=== PATIENT | female | born 1995 | race American Indian/Alaskan Native ===

== ENCOUNTER 2017-04-10 03:42 | Emergency (ER) | payer MEDICAID, OTHER ==
[2017-04-10] MEDS ORDERED: Sodium Chloride 0.9% 1,000 ML IV STA (04:07)
--- NOTE | 2017-04-10 04:08 | ED PDOC ---
Arrival/HPI - General Chief Complaint: Abdominal Pain Time Seen by Provider: 04/10/17 03:44 Historian: Patient - History of Present Illness Narrative History of Present Illness (Text): 04/10/17 04:05 Laquita Owen is a 21 year old female who presents to the Emergency department complaining of generalized abdominal pain for the past 4 days. Patient reports associated nausea, vomiting, diarrhea, and body aches. Patient states she took "opiates" yesterday for pain but denies any significant relief. Patient regularly uses marijuana. Patient denies any fever, chest pain, shortness of breath, urinary symptoms, back pain, neck pain, headache, dizziness , or any other complaints. Time/Duration: < week (4 days) Symptom Course: Unchanged Activities at Onset: Light Context: Home Past Medical History - Provider Review Nursing Documentation Reviewed: Yes - Infectious Disease Hx of Infectious Diseases: None - Cardiac Hx Cardiac Disorders: No - Pulmonary Hx Respiratory Disorders: No - Neurological Hx Neurological Disorder: No - HEENT Hx HEENT Disorder: No - Renal Hx Renal Disorder: No - Endocrine/Metabolic Hx Endocrine Disorders: No - Hematological/Oncological Hx Blood Disorders: No - Integumentary Hx Dermatological Disorder: No - Musculoskeletal/Rheumatological Hx Musculoskeletal Disorders: No - Gastrointestinal Hx Gastrointestinal Disorders: No - Genitourinary/Gynecological Hx Genitourinary Disorders: No - Psychiatric Hx Psychophysiologic Disorder: Yes Hx Substance Use: Yes Other/Comment: opiate abuse Family/Social History - Physician Review Nursing Documentation Reviewed: Yes Family/Social History: Unknown Family HX Smoking Status: Light Smoker < 10 Cigarettes Daily Hx Alcohol Use: Yes Frequency of alcohol use: Socially Hx Substance Use: Yes Substance used: opiates Allergies/Home Meds Allergies/Adverse Reactions: Allergies No Known Allergies Allergy (Verified 04/10/17 03:56) Home Medications: Home Meds Medication Instructions Recorded Confirmed No Known Home Med 04/10/17 04/10/17 Review of Systems - Physician Review All systems were reviewed & negative as marked: Yes - Review of Systems Constitutional: Normal Eyes: Normal ENT: Normal Respiratory: Normal. absent: SOB, Cough Cardiovascular: Normal. absent: Chest Pain Gastrointestinal: Abdominal Pain, Diarrhea, Nausea, Vomiting Genitourinary Female: Normal. absent: Dysuria, Frequency, Hematuria, Urine Output Changes Musculoskeletal: Myalgias. absent: Back Pain, Neck Pain Skin: Normal. absent: Rash Neurological: Normal. absent: Headache, Dizziness Endocrine: Normal Hemo/Lymphatic: Normal Psychiatric: Normal Physical Exam Vital Signs Reviewed: Yes Vital Signs Temp Pulse Resp BP Pulse Ox 04/10/17 05:42 74 17 125/73 100 04/10/17 03:42 98.2 F 57 L 18 128/75 99 Temperature: Afebrile Blood Pressure: Normal Pulse: Regular Respiratory Rate: Normal Appearance: Positive for: Well-Appearing, Non-Toxic, Comfortable Pain Distress: None Mental Status: Positive for: Alert and Oriented X 3 - Systems Exam Head: Present: Atraumatic, Normocephalic Pupils: Present: PERRL Extroacular Muscles: Present: EOMI Conjunctiva: Present: Normal Mouth: Present: Moist Mucous Membranes Neck: Present: Normal Range of Motion Respiratory/Chest: Present: Clear to Auscultation, Good Air Exchange. No: Respiratory Distress, Accessory Muscle Use Cardiovascular: Present: Regular Rate and Rhythm, Normal S1, S2. No: Murmurs Abdomen: Present: Normal Bowel Sounds. No: Tenderness, Distention, Peritoneal Signs Back: Present: Normal Inspection Upper Extremity: Present: Normal Inspection. No: Cyanosis, Edema Lower Extremity: Present: Normal Inspection. No: Edema Neurological: Present: GCS=15, CN II-XII Intact, Speech Normal Skin: Present: Warm, Dry, Normal Color. No: Rashes Psychiatric: Present: Alert, Oriented x 3, Normal Insight, Normal Concentration Medical Decision Making ED Course and Treatment: 04/10/17 04:05 Impression: 21 year old female complaining of generalized abdominal pain, nausea, vomiting, diarrhea, and body aches. Plan: -- Labs, alcohol level, lipase -- Urinalysis, urine drug screen -- IV fluids -- Zofran -- Pepcid -- Toradol -- Reassess and disposition Progress Notes: - Lab Interpretations Lab Results: 04/10/17 04:20 04/10/17 04:20 Lab Results 04/10/17 04:20: Urine Opiates Screen Positive H, Urine Methadone Screen Negative , Ur Barbiturates Screen Negative, Ur Phencyclidine Scrn Negative, Ur Amphetamines Screen Negative, U Benzodiazepines Scrn Negative, U Oth Cocaine Metabols Negative, U Cannabinoids Screen Positive H 04/10/17 04:20: Alcohol, Quantitative < 10 04/10/17 04:20: WBC 10.3, RBC 4.10, Hgb 11.7 L, Hct 35.6 L, MCV 86.8, MCH 28.5, MCHC 32.9, RDW 15.1 H, Plt Count 222, MPV 9.9 04/10/17 04:20: Sodium 140, Potassium 3.7, Chloride 104, Carbon Dioxide 26, Anion Gap 13, BUN 14, Creatinine 0.7, Est GFR ( Amer) > 60, Est GFR (Non- Af Amer) > 60, Random Glucose 98, Calcium 9.2, Total Bilirubin 0.5, AST 19, ALT 21, Alkaline Phosphatase 71, Total Protein 6.8, Albumin 4.1, Globulin 2.7, Albumin/Globulin Ratio 1.5, Lipase 107 04/10/17 04:20: Urine Color Yellow, Urine Appearance Clear, Urine pH 6.0, Ur Specific [place] >= 1.030, Urine Protein 30 H, Urine Glucose (UA) Negative, Urine Ketones 15 H, Urine Blood Negative, Urine Nitrate Negative, Urine Bilirubin Small H, Urine Urobilinogen 0.2, Ur Leukocyte Esterase Negative, Urine RBC 0 - 2, Urine WBC 5 - 10, Ur Epithelial Cells Many, Urine Bacteria Mod , Urine HCG, Qual Negative - RAD Interpretation Radiology Orders: 04/10/17 07:05 ABD & PELVIS IV CONTRAST ONLY [CT] Stat - Medication Orders Current Medication Orders: Morphine Sulfate (Morphine) 4 mg IVP STAT STA Stop: 04/10/17 07:04 Discontinued Medications Famotidine (Pepcid) 20 mg IVP STAT STA Stop: 04/10/17 04:08 Last Admin: 04/10/17 04:27 Dose: 20 mg IVP Administration Document 04/10/17 04:27 IT (Rec: 04/10/17 04:27 IT [id number]) Charges for Administration # of IVP Administrations 1 Sodium Chloride (Sodium Chloride 0.9%) 1,000 mls @ 999 mls/hr IV .Q1H1M STA Stop: 04/10/17 05:07 Last Admin: 04/10/17 04:27 Dose: 999 mls/hr eMAR Start Stop Document 04/10/17 04:27 IT (Rec: 04/10/17 04:27 IT [id number]) Intravenous Solution Start Date 04/10/17 Start Time 04:27 End Date 04/10/17 End time 05:27 Total Infusion Time 60 Ketorolac Tromethamine (Toradol) 30 mg IVP ONCE ONE Stop: 04/10/17 04:08 Last Admin: 04/10/17 04:27 Dose: 30 mg MAR Pain Assessment Document 04/10/17 04:27 IT (Rec: 04/10/17 04:27 IT [id number]) Pain Reassessment Is this a pain reassessment? No Sleep Is patient sleeping during reassessment? No Presence of Pain Presence of Pain Yes IVP Administration Document 04/10/17 04:27 IT (Rec: 04/10/17 04:27 IT [id number]) Charges for Administration # of IVP Administrations 1 Ondansetron HCl (Zofran Inj) 4 mg IVP ONCE ONE Stop: 04/10/17 04:08 Last Admin: 04/10/17 04:27 Dose: 4 mg IVP Administration Document 04/10/17 04:27 IT (Rec: 04/10/17 04:27 IT [id number]) Charges for Administration # of IVP Administrations 1 - Transfer of Care Patient signed out to Dr:: Dakotah Pending Radiology Studies:: CT Abd/pelvis/reassess/final disposition - Scribe Statement The provider has reviewed the documentation as recorded by the Donald Colby Provider Scribe Attestation: All medical record entries made by the Scribe were at my direction and personally dictated by me. I have reviewed the chart and agree that the record accurately reflects my personal performance of the history, physical exam, medical decision making, and the department course for this patient. I have also personally directed, reviewed, and agree with the discharge instructions and disposition. Disposition/Present on Arrival - Present on Arrival Any Indicators Present on Arrival: No History of DVT/PE: No History of Uncontrolled Diabetes: No Urinary Catheter: No History of Decub. Ulcer: No History Surgical Site Infection Following: None - Disposition Have Diagnosis and Disposition been Completed?: No Diagnosis: Abdominal pain Disposition: HOME/ ROUTINE Disposition Time: 07:06 Condition: STABLE Forms: [employer] (Japanese)
[2017-04-10 04:47] LABS: URINE BILIRUBIN SMALL (NEGATIVE); URINE BLOOD NEGATIVE (NEGATIVE); URINE GLUCOSE (UA) NEGATIVE (NEGATIVE); URINE LEUKOCYTE ESTERASE NEGATIVE Leu/uL (NEGATIVE); URINE NITRATE NEGATIVE (NEGATIVE); URINE PROTEIN 30 mg/dL (<30 mg/dL); URINE UROBILINOGEN 0.2 E.U./dL (<1 E.U./dL)
[2017-04-10 04:56] LABS: HEMOGLOBIN 11.7 g/dL (12.0-16.0); MEAN CELL VOLUME 86.8 fl (80.0-105.0); MEAN CORPUSCULAR HEMOGLOBIN 28.5 pg (25.0-35.0); MEAN CORPUSCULAR HGB CONC 32.9 g/dl (31.0-37.0); MEAN PLATELET VOLUME 9.9 fl (7.0-11.0); RBC 4.1 10^6/uL (3.5-6.1); RED CELL DISTRIBUTION WIDTH 15.1 % (11.5-14.5); WHITE BLOOD COUNT 10.3 10^3/ul (4.5-11.0)
[2017-04-10 04:58] LABS: ALB/GLOB RATIO 1.5 (1.1-1.8); ALBUMIN 4.1 g/dL (3.0-4.8); ALT/SGPT 21 U/L (7-56); AST/SGOT 19 U/L (14-36); BLOOD UREA NITROGEN 14 mg/dL (7-21); CALCIUM 9.2 mg/dL (8.4-10.5); GFR AFRICAN-AMERICAN > 60; GFR NON-AFRICAN AMERICAN > 60; LIPASE 107 U/L (23-300)
[2017-04-10 05:01] LABS: URINE APPEARANCE CLEAR (CLEAR); URINE COLOR YELLOW (YELLOW)
[2017-04-10 05:08] LABS: HCG,QUALITATIVE URINE NEGATIVE (NEGATIVE); URINE RBC 0 - 2 /hpf (0-2)
[2017-04-10 05:09] LABS: URINE BACTERIA MOD (NEG); URINE EPITHELIAL CELLS MANY /hpf (0-5)
[2017-04-10 05:22] LABS: BARBITURATES, UR NEGATIVE (NEGATIVE); BENZODIAZEPINES, UR NEGATIVE (NEGATIVE); PHENCYCLIDINE, UR NEGATIVE (NEGATIVE)
[2017-04-10 05:24] LABS: OPIATES, UR POSITIVE (NEGATIVE)
[2017-04-10] MEDS ORDERED: Morphine 2 mg/ml ISec IVP STA (07:03)
[2017-04-10] MEDS ORDERED: Iohexol 350 MG/100 ML VIAL ONE (07:40)
--- NOTE | 2017-04-10 08:38 | CT ---
PROCEDURE: CT Abdomen and Pelvis with contrast HISTORY: abdominal pain COMPARISON: None. TECHNIQUE: Contrast dose: 100 cc of Omni 350 Radiation dose: Total exam DLP = 299 mGy-cm. This CT exam was performed using one or more of the following dose reduction techniques: Automated exposure control, adjustment of the mA and/or kV according to patient size, and/or use of iterative reconstruction technique. FINDINGS: LOWER THORAX: Unremarkable. LIVER: Periportal edema is seen around the central and distal portal veins. This can be seen in numerous conditions. The most common etiology is hepatitis. Clinical correlation is suggested. GALLBLADDER AND BILE DUCTS: Unremarkable. PANCREAS: Unremarkable. No gross lesion or ductal dilatation. SPLEEN: Unremarkable. ADRENALS: Unremarkable. No mass. KIDNEYS AND URETERS: Unremarkable. No hydronephrosis. No solid mass. VASCULATURE: Unremarkable. No aortic aneurysm. BOWEL: Unremarkable. No obstruction. No gross mural thickening. APPENDIX: Normal appendix. PERITONEUM: Unremarkable. No free fluid. No free air. LYMPH NODES: Unremarkable. No enlarged lymph nodes. BLADDER: Unremarkable. REPRODUCTIVE: Multiple ovarian cysts are seen. There is a moderate amount of fluid in the cul-de-sac consistent with recent cyst rupture BONES: No acute fracture. OTHER FINDINGS: The findings were discussed with Dr. Claire at 8:30 a.m. IMPRESSION: Periportal edema in the liver. There are numerous possible etiologies. Most common etiology is viral hepatitis. Multiple ovarian cysts with a moderate amount of fluid in the cul-de-sac consistent with recent cyst rupture
--- NOTE | 2017-04-10 10:07 | ED PDOC ---
Physical Exam Vital Signs Temp Pulse Resp BP Pulse Ox 04/10/17 11:00 98.7 F 61 18 137/79 98 04/10/17 09:00 98.8 F 76 16 130/76 100 04/10/17 07:00 98.8 F 63 16 113/70 100 04/10/17 05:42 74 17 125/73 100 04/10/17 03:42 98.2 F 57 L 18 128/75 99 Medical Decision Making ED Course and Treatment: 04/10/17 9:55 Discussed case with GI fellow, who discussed case with Dr. Matthews. Dr. Matthews is requesting abdominal Ultrasound with doppler. 04/10/17 12:46 Discussed case with GI fellow regarding results of Ultrasound. Patient clear for discharge. Patient seems in no acute distress and is adviced for outpatient follow-up. - Lab Interpretations Lab Results: 04/10/17 04:20 04/10/17 04:20 Lab Results 04/10/17 04:20: Urine Opiates Screen Positive H, Urine Methadone Screen Negative , Ur Barbiturates Screen Negative, Ur Phencyclidine Scrn Negative, Ur Amphetamines Screen Negative, U Benzodiazepines Scrn Negative, U Oth Cocaine Metabols Negative, U Cannabinoids Screen Positive H 04/10/17 04:20: Alcohol, Quantitative < 10 04/10/17 04:20: WBC 10.3, RBC 4.10, Hgb 11.7 L, Hct 35.6 L, MCV 86.8, MCH 28.5, MCHC 32.9, RDW 15.1 H, Plt Count 222, MPV 9.9 04/10/17 04:20: Sodium 140, Potassium 3.7, Chloride 104, Carbon Dioxide 26, Anion Gap 13, BUN 14, Creatinine 0.7, Est GFR ( Amer) > 60, Est GFR (Non- Af Amer) > 60, Random Glucose 98, Calcium 9.2, Total Bilirubin 0.5, AST 19, ALT 21, Alkaline Phosphatase 71, Total Protein 6.8, Albumin 4.1, Globulin 2.7, Albumin/Globulin Ratio 1.5, Lipase 107 04/10/17 04:20: Urine Color Yellow, Urine Appearance Clear, Urine pH 6.0, Ur Specific [place] >= 1.030, Urine Protein 30 H, Urine Glucose (UA) Negative, Urine Ketones 15 H, Urine Blood Negative, Urine Nitrate Negative, Urine Bilirubin Small H, Urine Urobilinogen 0.2, Ur Leukocyte Esterase Negative, Urine RBC 0 - 2, Urine WBC 5 - 10, Ur Epithelial Cells Many, Urine Bacteria Mod , Urine HCG, Qual Negative - RAD Interpretation Radiology Orders: 04/10/17 07:05 ABD & PELVIS IV CONTRAST ONLY [CT] Stat 04/10/17 08:29 TRANSVAGINAL [US] Stat 04/10/17 09:49 ABDOMEN COMPLETE DUPLEX [US] Stat - Medication Orders Current Medication Orders: Discontinued Medications Famotidine (Pepcid) 20 mg IVP STAT STA Stop: 04/10/17 04:08 Last Admin: 04/10/17 04:27 Dose: 20 mg IVP Administration Document 04/10/17 04:27 IT (Rec: 04/10/17 04:27 IT [id number]) Charges for Administration # of IVP Administrations 1 Sodium Chloride (Sodium Chloride 0.9%) 1,000 mls @ 999 mls/hr IV .Q1H1M STA Stop: 04/10/17 05:07 Last Admin: 04/10/17 04:27 Dose: 999 mls/hr eMAR Start Stop Document 04/10/17 04:27 IT (Rec: 04/10/17 04:27 IT [id number]) Intravenous Solution Start Date 04/10/17 Start Time 04:27 End Date 04/10/17 End time 05:27 Total Infusion Time 60 Ketorolac Tromethamine (Toradol) 30 mg IVP ONCE ONE Stop: 04/10/17 04:08 Last Admin: 04/10/17 04:27 Dose: 30 mg MAR Pain Assessment Document 04/10/17 04:27 IT (Rec: 04/10/17 04:27 IT [id number]) Pain Reassessment Is this a pain reassessment? No Sleep Is patient sleeping during reassessment? No Presence of Pain Presence of Pain Yes IVP Administration Document 04/10/17 04:27 IT (Rec: 04/10/17 04:27 IT [id number]) Charges for Administration # of IVP Administrations 1 Morphine Sulfate (Morphine) 4 mg IVP STAT STA Stop: 04/10/17 07:04 Last Admin: 04/10/17 07:10 Dose: Not Given Non-Admin Reason: Nausea Ondansetron HCl (Zofran Inj) 4 mg IVP ONCE ONE Stop: 04/10/17 04:08 Last Admin: 04/10/17 04:27 Dose: 4 mg IVP Administration Document 04/10/17 04:27 IT (Rec: 04/10/17 04:27 IT [id number]) Charges for Administration # of IVP Administrations 1 Ondansetron HCl (Zofran Inj) 4 mg IVP STAT STA Stop: 04/10/17 07:33 Last Admin: 04/10/17 08:17 Dose: 4 mg IVP Administration Document 04/10/17 08:17 AB (Rec: 04/10/17 08:17 AB [id number]) Charges for Administration # of IVP Administrations 1 Disposition/Present on Arrival - Present on Arrival Any Indicators Present on Arrival: No History of DVT/PE: No History of Uncontrolled Diabetes: No Urinary Catheter: No History of Decub. Ulcer: No History Surgical Site Infection Following: None - Disposition Have Diagnosis and Disposition been Completed?: Yes Diagnosis: Abdominal pain Disposition: HOME/ ROUTINE Disposition Time: 07:00 Condition: STABLE Discharge Instructions (ExitCare): Ovarian Cyst (ED), Acute Abdominal Pain (ED) Additional Instructions: return to er with worsening symptoms or concerns. you will need follow up with gi. Prescriptions: Naproxen 500 mg PO BID PRN #14 tab PRN Reason: Pain, Mild (1-3) Referrals: [facility] [Outside] - [place] [facility] [place] [facility] [place] - Follow up with primary [facility] at [facility] [Outside] - Follow up with primary Anibal Perez MD [Staff Provider] - Follow up with primary Forms: [facility] (Thai)
--- NOTE | 2017-04-10 10:20 | US ---
HISTORY: abd pain COMPARISON: None available. TECHNIQUE: Transabdominal and transvaginal pelvic ultrasound was performed with longitudinal and transverse images submitted for interpretation. FINDINGS: UTERUS: Measures 8 1 x 5.3 x 6.5 cm. Uterus appears anteverted without discrete myometrial mass or cysts appreciable. ENDOMETRIUM: Measures 10 mm in diameter. Unremarkable. CERVIX: No cervical lesion is identified. RIGHT OVARY: Measures 3.9 x 2.4 x 3.4 cm. No solid mass. Normal flow. Developing follicles identified. LEFT OVARY: Measures 4.1 x 1.3 x 2.7 cm. No solid mass. Normal flow. Developing follicles identified. FREE FLUID: No significant free fluid noted. OTHER FINDINGS: None. IMPRESSION: Unremarkable pelvic ultrasound utilizing both transabdominal and transvaginal technique.
[2017-04-10 11:14] VITALS: BP 137/79; PULSE 61; RESP 18; TEMP 98.7; O2SAT 98
--- NOTE | 2017-04-10 11:34 | US ---
PROCEDURE: Portal vein duplex ultrasound. CLINICAL HISTORY: deteriorating liver function. Evaluate for portal vein thrombosis. PHYSICIAN(S): Robby Nowak M.D. FINDINGS: The extrahepatic portal vein is patent with hepatopetal flow. No sonographic evidence for thrombus or obstruction is seen. The 3 hepatic veins are visualized centrally and patent. The hepatic artery is patent. The spleen is normal in size. No ascites is appreciated in the upper abdomen IMPRESSION: 1. Patent portal vein with hepatopetal flow.
[2017-04-10 17:11] LABS: HEPATITIS B SURFACE AG NEGATIVE (NEGATIVE)
[2017-04-10 17:16] LABS: HEPATITIS A IGM NEGATIVE (NEGATIVE); HEPATITIS B CORE AB Negative (NEGATIVE)
[2017-04-10 17:28] LABS: HEPATITIS C ANTIBODY Negative (NEGATIVE)
== END 2017-04-10 12:59 | disposition home or self-care (01) ==
LOC: ED 03:42
DX: R10.9 Unspecified abdominal pain (principal); F11.10 Opioid abuse, uncomplicated
CPT/HCPCS: 74177; 76700; 76830; 80053; 80074; 81001; 83690; 84703; 85027; 87086; 96361; 96374; 96375; 96376; 99285; G0480; J1885; J2405; J7040; Q9967